=== PATIENT | male | born 1950 | race Caucasian/White ===

== ENCOUNTER → 2019-07-26 | Outpatient (CLI) | payer MEDICARE, BC ==
[~2019-07-26] MED LIST: ACET65TA; COUM1TAB18; FERR325T; PERC5TAB8; VASO5TAB; VITA100027
--- NOTE | 2019-07-26 08:34 | REP ---
Maxillofacial CT study without contrast: History: Hypertrophy of the adenoids. Question neoplasm. No comparison imaging. Findings: The frontal, ethmoidal, and sphenoid sinuses are clear. There is a 1 cm mucous retention cyst in the floor the maxillary sinus on the left. The maxillary sinuses are otherwise clear. Mastoid aeration is normal and symmetric. No bony destructive lesion is seen at the skull base. Bony nasal septum is essentially midline. Nasal turbinate soft tissues are unremarkable. Ostiomeatal complexes are patent bilaterally. Adenoidal soft tissues are radiographically unremarkable. No nasopharyngeal, pharyngeal or hypopharyngeal mass is seen. Tonsillar and peritonsillar soft tissues are unremarkable. Epiglottis and aryepiglottic folds appear intact. The parotid and submandibular glands are symmetric. Impression: 1 cm mucous retention cyst in the floor the left maxillary sinus. Otherwise negative. Electronically Signed by Bossman Maguire MD 07/26/2019 08:52 A
== END ==
LOC: M RAD 06:54
PROVIDERS: ATTEND Otolaryngology
DX: J34.1 Cyst and mucocele of nose and nasal sinus (principal); J35.2 Hypertrophy of adenoids

== ENCOUNTER → 2019-08-27 | Outpatient (CLI) | payer MEDICARE, BC ==
[~2019-08-27] MED LIST changes: +METHACHOLINE KIT (J7674) INH ONE
--- NOTE | 2019-08-27 11:09 | PFTRPT ---
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 Review Status: Not Reviewed Pre-Bronch Post-Bronch Pred Actual %Pred Actual %Chng SPIROMETRY FVC (L) 4.05 4.29 105 4.37 1 FEV1 (L) 2.96 3.37 113 3.51 4 FEV1/FVC (%) 73 79 107 80 2 FEF 25% (L/sec) 7.30 6.96 95 7.09 1 FEF 50% (L/sec) 4.47 3.75 83 3.63 -3 FEF 75% (L/sec) 1.20 1.40 116 1.81 28 FEF 25-75% (L/sec) 2.23 2.95 132 3.24 9 FEF Max (L/sec) 7.78 7.61 97 7.86 3 FIVC (L) 4.48 4.62 3 FIF 50% (L/sec) 4.43 5.81 131 3.53 -39 FIF Max (L/sec) 6.04 4.01 -33 Expiratory Time (sec) 5.40 6.74 24 Back Extrap Vol (L) 0.12 0.12 4 Time To FEFmax (sec) 0.098 0.091 -7
== END ==
LOC: M CARPUL 09:57
PROVIDERS: ATTEND Nurse Practitioner Family
DX: R05 Cough (principal)
CPT/HCPCS: 94070; 95070; J7674